=== PATIENT | male | born 1985 | race Caucasian/White ===

== ENCOUNTER 2022-03-30 06:34 | Inpatient (IN) | payer SELFPAY ==
[2022-03-30 09:35] VITALS: BMI 21.9
[2022-03-30] MEDS ORDERED: Morphine 4 MG/ML VIAL SLOW IVP PRN (10:30)
[2022-03-30] MEDS ORDERED: Ondansetron PF 4 MG/2 ML Vial IVP PRN (10:30)
[2022-03-30] MEDS ORDERED: Ondansetron ODT 4 MG TAB PO PRN (10:30)
[2022-03-30] MEDS ORDERED: Acetaminophen 500 MG TAB PO PRN (10:30)
[2022-03-30] MEDS: Sodium Chloride 0.9% 1,000 ML IV SCH ×2 (10:42→17:55)
[2022-03-30] MEDS ORDERED: Pantoprazole 40 MG VIAL IVP SCH (10:45)
[2022-03-31] MEDS: Sodium Chloride 0.9% 1,000 ML IV SCH ×2 (03:22→10:56)
[2022-03-31 06:33] LABS: ALT (SGPT) 92 U/L (8-55); AST (SGOT) 44 U/L (5-34); Albumin 3.1 g/dL (3.5-5.0); Alkaline Phosphatase 57 U/L (40-110); Anion Gap 14 mmol/L (10-20); BUN (Urea Nitrogen) 10 mg/dL (8.9-20.6); Bilirubin, Total 0.6 mg/dL (0.2-1.2); Calc. Creatinine Clearance 158 mL/min (70-130); Calcium 8.5 mg/dL (7.8-10.44); Carbon Dioxide 21 mmol/L (22-29); Chloride 107 mmol/L (98-107); Estimated GFR 122; Globulin 2.5 g/dL (2.4-3.5); Glucose 72 mg/dL (70-105); Potassium 3.7 mmol/L (3.5-5.1); Protein, Total 5.6 g/dL (6.0-8.3); Sodium 138 mmol/L (136-145)
[2022-03-31 07:13] LABS: Hemoglobin 12.1 g/dL (14.0-18.0); Mean Corpuscular HGB CONC 34.5 g/dL (32.0-36.0); Mean Corpuscular Hemoglobin 30.8 pg (27.0-31.0); Mean Corpuscular Volume 89.3 fL (78.0-98.0); Mean Platelet Volume 6.9 fL (7.4-10.4); Platelet Count 191 thou/uL (130-400); Red Blood Cell (RBC) Count 3.93 mill/uL (4.70-6.10); White Blood Cell (WBC) Count 6.4 thou/uL (4.8-10.8)
[2022-03-31] MEDS ORDERED: Pantoprazole 40 MG VIAL IVP SCH (09:00)
[2022-03-31 11:22] LABS: Band 25 % (5-11); Eosinophils 1 % (0-10); Lymphocytes 24 % (21-51); MDiff Complete? YES; Monocytes 7 % (0-10); Neutrophil 38 % (42-75); Platelet Morphology Comment Appears Adequate; RBC Morphology Normal; Reactive Lymphocytes 5 % (0-10)
[2022-03-31 15:13] VITALS: BP 125/81; TEMP 97.8
== END 2022-03-31 15:15 | disposition home or self-care (01) | DRG 388 ==
LOC: T4-B 09:27 → OBSVTOIN 10:30
PROVIDERS: ADMIT Internal Medicine; ATTEND Internal Medicine
PROC: 0D9670Z Drainage of Stomach with Drainage Device, Via Natural or Artificial Opening (ICD-10-PCS; principal; 2022-03-30)
DX: K56.7 Ileus, unspecified (principal); G92.8 Other toxic encephalopathy; T42.4X5A Adverse effect of benzodiazepines, initial encounter
CPT/HCPCS: 36415; 74018; 80053; 85025; C9113; J7050